=== PATIENT | female | born 1995 | race African-American/Black ===

== ENCOUNTER → 2016-06-27 | Outpatient (CLI) | payer OTHER ==
[~2016-06-27] MED LIST: GLYB5TAB3 PO; IBUP-232 PO; ONETMIS2; ONETTES4; OXYC1TAB63 PO; PRENCAP PO; SENN1TAB PO; TERC.4%V VAGINAL
== END ==
LOC: CDED 14:54
PROVIDERS: ATTEND Nurse Practitioner Women's Health
DX: O24.419 Gestational diabetes mellitus in pregnancy, unspecified control (principal)
CPT/HCPCS: 97802

== ENCOUNTER 2016-07-19 07:13 | Inpatient (IN) | payer SELFPAY ==
[2016-07-19] VITALS (101 sets, daily range): BP systolic 94–160; BP diastolic 53–100; PULSE 57–152; RESP 15–22; TEMP 98.6–101.5; O2SAT 97–100
[~2016-07-19 07:13] MED LIST changes: -IBUP-232 PO; -ONETMIS2; -ONETTES4; -OXYC1TAB63 PO; -SENN1TAB PO; -TERC.4%V VAGINAL
[2016-07-19] MEDS ORDERED: LACTATED RINGER'S 1000 ML INJ 1,000 ML IV SCH ×3 (08:12→23:00)
[2016-07-19] MEDS ORDERED: LACTATED RINGER'S 1000 ML INJ 1,000 ML IV PRN (08:12)
[2016-07-19] MEDS ORDERED: OXYTOCIN 30 UNITS-500ML PREMIX 500 ML IV ONE ×2 (08:15→18:00)
[2016-07-19] MEDS ORDERED: LIDOCAINE HCL 1% 50 ML VIAL INFIL PRN (08:15)
[2016-07-19] MEDS ORDERED: MINERAL OIL 10 ML VIAL TOPICAL PRN (08:15)
[2016-07-19] MEDS ORDERED: ONDANSETRON HCL 4 MG/2 ML VIAL IV PRN (08:15)
[2016-07-19] MEDS ORDERED: CITRIC ACID-SODIUM CITRATE LIQ 30 ML UDC PO SCH ×2 (08:15→18:15)
[2016-07-19] MEDS ORDERED: SODIUM CHLORID 0.9% 500 ML INJ 500 ML IV PRN (08:15)
[2016-07-19] MEDS ORDERED: LIDOCAINE HCL 1% 50 ML VIAL I-DERMAL PRN (08:15)
--- NOTE | 2016-07-19 08:24 | PD ---
HPI Chief Complaint Rupture or membranes Date Seen: Jul 19, 2016 Time Seen: 08:00 Travel History International Travel<30 Days: No Contact w/Intl Traveler<30Days: No Known Affected Area: No History of Present Illness HPI Patient is a 21-year-old G1 presenting at 38/1 weeks gestation with DUNG of based on the third trimester ultrasound presenting due to leakage of fluid. Patient reports that about 6 AM she began to notice a slow leak of clear fluid with occasional spots of blood and eventually a larger gush. She also endorses contractions that started around this time, injury or frequency. She endorses movement. care has been care for women starting in May. GBS negative. Patient reports anaphylactic reaction to penicillin. complicated by: Late care at 30 weeks Gestational diabetes, patient on glyburide 5 mg by mouth daily Para: 0 : 1 History Past Medical History Narrative Medical None, no history of diabetes prior to or asthma Obstetric History Obstetric History Current : care with [facility] complicated by gestational diabetes, late care Past Surgical History Surgical History: No Previous Surgery Family History Narrative Family History Father: Diabetes Mother: None Social History Alcohol Use: No Tobacco Use: No Substance Abuse: No Allergies-Medications (Allergen,Severity, Reaction): Coded Allergies: Penicillin (Verified Allergy, Unknown, 07/11/16) Home Meds Active Scripts Glyburide 5 Mg Tab5 Mg PO DAILY #60 TAB Ref 0 Take with meals at the same time each day Prov:Fletcher Smyth MD 07/03/16 Without A W/ Fe Fumar (Prenate Dha 28-0.6-0.4-300 mg)1 Cap Cap1 Tab PO DAILY #30 BOTTLE Ref 11 Prov:Janel Parish 05/28/16 Review of Systems General / Constitutional: No: Fever, Chills Eyes: No: Diploplia HENT: Headaches Cardiovascular: No: Chest Pain or Discomfort Respiratory: No: Cough Gastrointestinal: Abdominal Pain, No: Nausea, Vomiting Genitourinary: No: Dysuria Musculoskeletal: No: Edema Skin: No Rash Neurologic: No: Syncope Physical Exam Narrative Vitals: T: 100.6, RR: 18, HR: 139, DP, 133/88 GENERAL: Well-nourished, well-developed patient. SKIN: Warm and dry. HEAD: Normocephalic and atraumatic. EYES: No scleral icterus. No injection or drainage. ENT: No nasal drainage noted. Mucous membranes pink. Airway patent. NECK: Supple, trachea midline. No JVD. CARDIOVASCULAR: Regular rate and rhythm without murmurs, gallops, or rubs. RESPIRATORY: Breath sounds equal bilaterally. No accessory muscle use. ABDOMEN/GI: Abdomen soft, non-tender, bowel sounds present, no rebound, no guarding Gravid to 38 weeks size GENITOURINARY: External Genitalia: intact and normal in appearance Cervix: Posterior Dilatation: 1cm Effacement: 70% Station: -3 Presentation: Vertex Membranes:Ruptured Uterine Contractions: Q2-3 minutes FHT's: Category: 2 Baseline: 175 Reactive: + Variability: Moderate Decels: Absent EXTREMITIES: No cyanosis or edema. BACK: Nontender without obvious deformity. No CVA tenderness. NEUROLOGICAL: Awake and alert. Motor and sensory grossly within normal limits. Five out of 5 muscle strength in all muscle groups. Normal speech. Data Data Orders Vital Signs (Adult) .ON ADMISSION (07/19/16 08:11) ^ Labor Status (07/19/16 08:11) Urinalysis - C+S If Indicated (07/19/16 08:11) ^ Non Stress Test (07/19/16 08:11) ^ Hydration (07/19/16 08:11) Admit To Inpatient (07/19/16 ) Code Status (07/19/16 08:12) Vital Signs (Adult) .Per protocol (07/19/16 08:12) Activity Oob Ad Mallika (07/19/16 08:12) Heart (07/19/16 08:12) Amnioinfusion (07/19/16 08:12) Urinary Catheter Management .ONCE (07/19/16 08:12) Diet Liquid (07/19/16 Breakfast) Lactated Ringer's 1000 Ml Inj (Lr 1000 M (07/19/16 08:12) Lactated Ringer's 1000 Ml Inj (Lr 1000 M (07/19/16 08:12) Sodium Chlorid 0.9% 500 Ml Inj (Ns 500 M (07/19/16 08:15) Sodium Chlor 0.9% 1000 Ml Inj (Ns 1000 M (07/19/16 08:32) Lidocaine 1% Inj (50 Ml) (Xylocaine 1% I (07/19/16 08:15) Citric Acid-Sodium Citrate Liq (Bicitra (07/19/16 08:15) Ondansetron Inj (Zofran Inj) (07/19/16 08:15) Fentanyl Inj (Fentanyl Inj) (07/19/16 08:15) Fentanyl Inj (Fentanyl Inj) (07/19/16 08:15) Complete Blood Count With Diff (07/19/16 08:12) Hold Clot (07/19/16 08:12) Abo/Rh Blood Type (07/19/16 08:12) Urinalysis - C+S If Indicated (07/19/16 08:12) Type And Screen (07/19/16 08:12) Resp Oxygen Non Rebreathe Mask (07/19/16 ) ^ Epidural / Intrathecal Infus (07/19/16 08:12) Oxytocin 30 Units-500ml Premix (Pitocin (07/19/16 08:15) Lidocaine 1% Inj (50 Ml) (Xylocaine 1% I (07/19/16 08:15) Light Mineral Oil (Muri-Lube Oil) (07/19/16 08:15) Inpatient Certification (07/19/16 ) Comprehensive Metabolic Panel (07/19/16 08:15) MDM Medical Record Reviewed: Yes Interpretation(s) Patient is a 21-year-old G1 presenting at 38/1 weeks gestation with DUNG of based on the third trimester ultrasound presenting due to leakage of fluid. Pt received late care starting at about 30 weeks gestation. Amnisure positive, will admit for labor and delivery. IUP Category 2 tracing Will starts IV ABX, see below External monitoring/toco Amnisure positive Admit for expectant management Anticipate vaginal delivery Elevated maternal temperature Maternal temperature of 100.6 Fluid meconium stained No abdominal tenderness on exam Pt reports anaphylactic penicillin allergy Will start clindamycin IV 900 mg Q8 and Gentamicin with loading dose of 120 mg followed by 80 mg IV Q8 Gestational Diabetes Pt taking glyburide 5 mg daily sdw Yeni Justice MD R2 Jul 19, 2016 08:24
[2016-07-19] MEDS ORDERED: SODIUM CHLOR 0.9% 1000 ML INJ 1,000 ML IV PRN (08:32)
--- NOTE | 2016-07-19 08:40 | HHI.HP ---
History & Physical H&P HPI Chief Complaint Rupture or membranes Date Seen: Jul 19, 2016 Time Seen: 08:00 Travel History International Travel<30 Days: No Contact w/Intl Traveler<30Days: No Known Affected Area: No History of Present Illness HPI Patient is a 21-year-old G1 presenting at 38/1 weeks gestation with DUNG of based on the third trimester ultrasound presenting due to leakage of fluid. Patient reports that about 6 AM she began to notice a slow leak of clear fluid with occasional spots of blood and eventually a larger gush. She also endorses contractions that started around this time, injury or frequency. She endorses movement. care has been care for women starting in May. GBS negative. Patient reports anaphylactic reaction to penicillin. complicated by: Late care at 30 weeks Gestational diabetes, patient on glyburide 5 mg by mouth daily Para: 0 : 1 History (Limited) History Past Medical History Narrative Medical None, no history of diabetes prior to or asthma Obstetric History Obstetric History Current : care with [facility] complicated by gestational diabetes, late care Past Surgical History Surgical History: No Previous Surgery Family History Narrative Family History Father: Diabetes Mother: None Social History Alcohol Use: No Tobacco Use: No Substance Abuse: No Allergies-Medications Allergies-Medications (Allergen,Severity, Reaction): Coded Allergies: Penicillin (Verified Allergy, Unknown, 07/11/16) Home Meds Active Scripts Glyburide 5 Mg Tab5 Mg PO DAILY #60 TAB Ref 0 Take with meals at the same time each day Prov:Fletcher Smyth MD 07/03/16 Without A W/ Fe Fumar (Prenate Dha 28-0.6-0.4-300 mg)1 Cap Cap1 Tab PO DAILY #30 BOTTLE Ref 11 Prov:Janel Parish 05/28/16 ROS Review of Systems General / Constitutional: No: Fever, Chills Eyes: No: Diploplia HENT: Headaches Cardiovascular: No: Chest Pain or Discomfort Respiratory: No: Cough Gastrointestinal: Abdominal Pain, No: Nausea, Vomiting Genitourinary: No: Dysuria Musculoskeletal: No: Edema Skin: No Rash Neurologic: No: Syncope Physical Exam Physical Exam Narrative Vitals: T: 100.6, RR: 18, HR: 139, DP, 133/88 GENERAL: Well-nourished, well-developed patient. SKIN: Warm and dry. HEAD: Normocephalic and atraumatic. EYES: No scleral icterus. No injection or drainage. ENT: No nasal drainage noted. Mucous membranes pink. Airway patent. NECK: Supple, trachea midline. No JVD. CARDIOVASCULAR: Regular rate and rhythm without murmurs, gallops, or rubs. RESPIRATORY: Breath sounds equal bilaterally. No accessory muscle use. ABDOMEN/GI: Abdomen soft, non-tender, bowel sounds present, no rebound, no guarding Gravid to 38 weeks size GENITOURINARY: External Genitalia: intact and normal in appearance Cervix: Posterior Dilatation: 1cm Effacement: 70% Station: -3 Presentation: Vertex Membranes:Ruptured Uterine Contractions: Q2-3 minutes FHT's: Category: 2 Baseline: 175 Reactive: + Variability: Moderate Decels: Absent EXTREMITIES: No cyanosis or edema. BACK: Nontender without obvious deformity. No CVA tenderness. NEUROLOGICAL: Awake and alert. Motor and sensory grossly within normal limits. Five out of 5 muscle strength in all muscle groups. Normal speech. Data Data Data Orders Vital Signs (Adult) .ON ADMISSION (07/19/16 08:11) ^ Labor Status (07/19/16 08:11) Urinalysis - C+S If Indicated (07/19/16 08:11) ^ Non Stress Test (07/19/16 08:11) ^ Hydration (07/19/16 08:11) Admit To Inpatient (07/19/16 ) Code Status (07/19/16 08:12) Vital Signs (Adult) .Per protocol (07/19/16 08:12) Activity Oob Ad Mallika (07/19/16 08:12) Heart (07/19/16 08:12) Amnioinfusion (07/19/16 08:12) Urinary Catheter Management .ONCE (07/19/16 08:12) Diet Liquid (07/19/16 Breakfast) Lactated Ringer's 1000 Ml Inj (Lr 1000 M (07/19/16 08:12) Lactated Ringer's 1000 Ml Inj (Lr 1000 M (07/19/16 08:12) Sodium Chlorid 0.9% 500 Ml Inj (Ns 500 M (07/19/16 08:15) Sodium Chlor 0.9% 1000 Ml Inj (Ns 1000 M (07/19/16 08:32) Lidocaine 1% Inj (50 Ml) (Xylocaine 1% I (07/19/16 08:15) Citric Acid-Sodium Citrate Liq (Bicitra (07/19/16 08:15) Ondansetron Inj (Zofran Inj) (07/19/16 08:15) Fentanyl Inj (Fentanyl Inj) (07/19/16 08:15) Fentanyl Inj (Fentanyl Inj) (07/19/16 08:15) Complete Blood Count With Diff (07/19/16 08:12) Hold Clot (07/19/16 08:12) Abo/Rh Blood Type (07/19/16 08:12) Urinalysis - C+S If Indicated (07/19/16 08:12) Type And Screen (07/19/16 08:12) Resp Oxygen Non Rebreathe Mask (07/19/16 ) ^ Epidural / Intrathecal Infus (07/19/16 08:12) Oxytocin 30 Units-500ml Premix (Pitocin (07/19/16 08:15) Lidocaine 1% Inj (50 Ml) (Xylocaine 1% I (07/19/16 08:15) Light Mineral Oil (Muri-Lube Oil) (07/19/16 08:15) Inpatient Certification (07/19/16 ) Comprehensive Metabolic Panel (07/19/16 08:15) [facility] MDM Medical Record Reviewed: Yes Interpretation(s) Patient is a 21-year-old G1 presenting at 38/1 weeks gestation with DUNG of based on the third trimester ultrasound presenting due to leakage of fluid. Pt received late care starting at about 30 weeks gestation. Amnisure positive, will admit for labor and delivery. IUP Category 2 tracing Will starts IV ABX, see below External monitoring/toco Amnisure positive Admit for expectant management Anticipate vaginal delivery Elevated maternal temperature Maternal temperature of 100.6 Fluid meconium stained No abdominal tenderness on exam Pt reports anaphylactic penicillin allergy Will start clindamycin IV 900 mg Q8 and Gentamicin with loading dose of 120 mg followed by 80 mg IV Q8 Gestational Diabetes Pt taking glyburide 5 mg daily sdw Yeni Justice MD R2 Jul 19, 2016 08:40
--- NOTE | 2016-07-19 08:49 | PD ---
History of Present Illness Date Seen: Jul 19, 2016 Time Seen: 07:30 History of Present Illness OB note Patient is a 21-year-old black female at 38 weeks because to care for women clinic presents with spontaneous rupture membranes. Also having contractions every 3 minutes. Denies vaginal bleeding. She has gross ruptured membranes noted with the meconium-stained amnio sure was positive and on exam doing the amnio sure he can visualize fluid rolling over the Q-tip ,. heart rate tracing is reactive. Patient's temperature is 100.6 she has a slight tachycardia and the baby is also tachycardic in the 170 range with accelerations and good variability. Patient's cervix is 1/ 70 and -3 vertex presentation Impression-SROM at 38 weeks with meconium reactive amnionitis with low-grade fever tachycardia and early labor in the latent phase Plan-augment labor when necessary, IV clindamycin and gentamicin she is allergic to penicillin, anticipate vaginal delivery Wolf Swenson II, MD Jul 19, 2016 08:48
[2016-07-19] MEDS ORDERED: GENTAMICIN INJ 120 MG in SODIUM CHLORIDE 0.9% INJ 100 ML IV ONE (09:00)
[2016-07-19 09:02] LABS: AUTOMATED NEUTROPHIL # 4.1 TH/MM3 (1.8-7.7); BASOPHIL % 0.4 % (0.0-2.0); HEMATOCRIT 33.6 % (35.0-46.0); LYMPH % 13.6 % (9.0-44.0); LYMPHOCYTE # 0.7 TH/MM3 (1.0-4.8); MEAN CELL VOLUME 82.8 FL (80.0-100.0); MEAN CORPUSCULAR HEMOGLOBIN 26.6 PG (27.0-34.0); MEAN CORPUSCULAR HGB CONC 32.1 % (32.0-36.0); MONO % 10.2 % (0.0-8.0); NEUT % 75.8 % (16.0-70.0); RED BLOOD COUNT 4.05 MIL/MM3 (4.00-5.30); RED CELL DISTRIBUTION WIDTH 14.2 % (11.6-17.2); WHITE BLOOD COUNT 5.4 TH/MM3 (4.0-11.0)
[2016-07-19 09:18] LABS: HEMO FLAGS AUTO DIFF
[2016-07-19 09:22] LABS: ANION GAP 10 MEQ/L (5-15); AST (GOT) 17 U/L (15-37); BICARBONATE 20.9 MEQ/L (21.0-32.0); BLOOD UREA NITROGEN 8 MG/DL (7-18); CHLORIDE 102 MEQ/L (98-107); GLOMERULAR FILTRATION RATE 94 ML/MIN (>89); POTASSIUM 4.1 MEQ/L (3.5-5.1); SODIUM (NA) 133 MEQ/L (136-145)
[2016-07-19 09:23] LABS: ALT (GPT) 18 U/L (10-53)
[2016-07-19 09:25] LABS: ALKALINE PHOSPHATASE 115 U/L (45-117); TOTAL BILIRUBIN ADULT 0.3 MG/DL (0.2-1.0)
[2016-07-19 09:42] LABS: PLATELET ESTIMATE SMEAR LOW (NORMAL); PLATELET MORPHOLOGY ENLARGED (NORMAL); SCAN/DIFF AUTO DIFF CONFIRMED
[2016-07-19] MEDS: CLINDAMYCIN INJ 900 MG in SODIUM CHLORIDE 0.9% INJ 100 ML IV SCH ×2 (10:02→18:00)
[2016-07-19 10:42] LABS: BACTERIA, URINE OCC /hpf; BLOOD, URINE NEG (NEG); COMMENT (UR) CULT NOT INDICATED; CULTURE IF INDICATED CULT NOT INDICATED; GLUCOSE,URINE NEG (NEG); KETONE, URINE 10 mg/dL (NEG); MUCUS URINE FEW /lpf (OCC); NITRITE,URINE NEG (NEG); PH, URINE 6.5 (5.0-8.5); SQUAMOUS EPITHELIAL CELL URINE <1 /hpf (0-5); URINE COLOR YELLOW (YELLW/STRAW)
[2016-07-19] MEDS: ACETAMINOPHEN 325 MG TAB PO PRN ×2 (10:55→15:20)
[2016-07-19] MEDS ORDERED: ePHEDrine/NS 25 MG/5 ML SYR ONE (11:37)
[2016-07-19] MEDS ORDERED: fentaNYL 2MCG-BUPIV 0.125% INJ 100 ML ONE (11:37)
[2016-07-19] MEDS ORDERED: DO NOT ADMINISTER ANTICOAGULANTS PRN (14:15)
[2016-07-19] MEDS ORDERED: ePHEDrine/NS 25 MG/5 ML SYR IV PRN (14:15)
[2016-07-19] MEDS ORDERED: fentaNYL 2MCG-BUPIV 0.125% 100 ML EPIDURAL SCH (14:15)
[2016-07-19] MEDS ORDERED: NO SYSTEM NARCOTICS PRN (14:15)
[2016-07-19] MEDS ORDERED: LACTATED RINGER'S 1000 ML INJ 1,000 ML IV ONE (16:44)
[2016-07-19] MEDS ORDERED: OXYTOCIN 10 UNIT/ML AMP ONE (16:54)
[2016-07-19] MEDS ORDERED: ceFAZolin INJ 1,000 MG VIAL ONE (16:55)
[2016-07-19] MEDS ORDERED: GENTAMICIN INJ 80 MG in SODIUM CHLORIDE 0.9% INJ 100 ML IV SCH (17:00)
[2016-07-19] MEDS ORDERED: ONDANSETRON HCL 4 MG/2 ML VIAL ONE (17:01)
[2016-07-19] MEDS ORDERED: ACETAMINOPHEN 1000 MG/100 ML VIAL IV ONE (17:01)
[2016-07-19] MEDS ORDERED: MORPHINE SULFATE PF 5 MG/10 ML VIAL ONE (17:01)
[2016-07-19] MEDS ORDERED: METHYLERGONOVINE MALEATE 0.2 MG/ML VIAL ONE (17:20)
[2016-07-19 17:46] LABS: BLOOD GAS BASE EXCESS -6.8 mmol/L (-2-2); CORD BLOOD GAS HCO3 21 mmol/L (21-29); CORD BLOOD GAS PCO2 64 mmHG (34-78); CORD BLOOD GAS PH 7.14 (7.14-7.42)
[2016-07-19 17:47] LABS: BLOOD GAS O2 HGB SATURATION 3 % (90-100); CORD BLOOD GAS PO2 4 mmHG (3.0-40.0); DRAW SITE CORD BLOOD; STAT YES
[2016-07-19] MEDS ORDERED: ONDANSETRON HCL 4 MG/2 ML VIAL IV PUSH PRN (18:00)
[2016-07-19] MEDS ORDERED: SIMETHICONE 80 MG CHEWABLE TAB PO PRN (18:00)
[2016-07-19] MEDS ORDERED: SODIUM CHLORIDE 0.9% FLUSH 10 ML FLUSH IV FLUSH PRN (18:00)
[2016-07-19] MEDS ORDERED: ACETAMINOPHEN 325 MG TAB PO PRN (18:00)
[2016-07-19] MEDS ORDERED: ZOLPIDEM TARTRATE 5 MG TAB PO PRN (18:00)
[2016-07-19] MEDS ORDERED: oxyCODONE/ACETAMINOPHEN 5 MG/325 MG TAB PO PRN (18:00)
[2016-07-19] MEDS ORDERED: ceFAZolin 2 GM PREMIX 50 ML IV SCH (19:00)
[2016-07-19] MEDS ORDERED: OXYTOCIN 30 UNITS-500ML PREMIX 500 ML ONE (19:55)
[2016-07-19] MEDS ORDERED: EPIDURAL-DO NOT ADMINISTER ANTICOAGULANTS PRN (21:00)
[2016-07-19] MEDS ORDERED: EPIDURAL-DIPHENHYDRAMINE HCL 50 MG CAP PO PRN (21:00)
[2016-07-19] MEDS ORDERED: EPIDURAL-NO SYSTEMIC NARCOTICS PRN (21:00)
[2016-07-19] MEDS ORDERED: EPIDURAL-NALOXONE HCL 0.4 MG/ML AMP IV PRN (21:00)
[2016-07-19] MEDS ORDERED: EPIDURAL-DIPHENHYDRAMINE HCL 50 MG/ML VIAL IV PUSH PRN (21:00)
[2016-07-20] VITALS: RESP 18
[2016-07-20 00:39] VITALS: BP 118/77; PULSE 100; RESP 20; TEMP 99.4
[2016-07-20] MEDS: GENTAMICIN 80 MG PREMIX 100 ML IV SCH ×2 (00:45→08:59)
[2016-07-20] MEDS: SODIUM CHLORIDE 0.9% FLUSH 10 ML FLUSH IV FLUSH SCH ×2 (00:46→21:00)
[2016-07-20] MEDS: IBUPROFEN 600 MG TAB PO PRN ×2 (01:08→20:16)
[2016-07-20 02:00] VITALS: RESP 16; RESP 18
[2016-07-20] MEDS: ACETAMINOPHEN 1000 MG/100 ML VIAL IV SCH ×2 (02:11→10:35)
[2016-07-20] MEDS: CLINDAMYCIN INJ 900 MG in SODIUM CHLORIDE 0.9% INJ 100 ML IV SCH ×2 (02:19→10:35)
[2016-07-20 03:00] VITALS: RESP 18
[2016-07-20] MEDS ORDERED: OXYTOCIN 30 UNITS-500ML PREMIX 500 ML IV PRN (04:00)
[2016-07-20 04:33] VITALS: BP 115/77; PULSE 72; RESP 16; TEMP 97.5
[2016-07-20 06:00] LABS: AUTOMATED NEUTROPHIL # 5.1 TH/MM3 (1.8-7.7); BASOPHIL % 0.2 % (0.0-2.0); HEMATOCRIT 35.8 % (35.0-46.0); MEAN CELL VOLUME 83.8 FL (80.0-100.0); MEAN CORPUSCULAR HGB CONC 32.3 % (32.0-36.0); MONO % 6.1 % (0.0-8.0); NEUT % 78.7 % (16.0-70.0); PLATELET COUNT 86 TH/MM3 (150-450); RED BLOOD COUNT 4.27 MIL/MM3 (4.00-5.30); RED CELL DISTRIBUTION WIDTH 14.5 % (11.6-17.2); WHITE BLOOD COUNT 6.4 TH/MM3 (4.0-11.0)
[2016-07-20 06:04] LABS: HEMO FLAGS AUTO DIFF
[2016-07-20 06:58] LABS: SCAN/DIFF AUTO DIFF CONFIRMED
--- NOTE | 2016-07-20 09:31 | HHI.OB ---
Subjective Post Operative Day: 1 Remarks Patient is a 21-year-old delivered at 38 weeks and 1 day. Patient is day 1 after for nonreassuring heart tracing. Patient' s pain is well-controlled. Patient reports eating and drinking without any nausea or vomiting. Patient reports minimal bleeding. Patient has passed gas but no bowel movements. Patient is walking without lower extremity pain or shortness of breath. Patient reports desire for contraception with oral control pills and breast-feeding. (Michael Lee MD R1) Objective Vitals/I&O Vital Signs: Patient has been afebrile since 07/19/16 at 15:06 when she had a temperature 100.8. Patient was tachycardic with low blood pressure at that time. Tachycardia persists until patient had a few episodes of elevated blood pressure. Most recent vitals have been afebrile with other vital signs within normal limits. Date Time Temp Pulse Resp B/P Pulse Ox O2 Delivery O2 Flow Rate FiO2 07/20/16 04:33 97.5 72 16 115/77 07/20/16 03:00 18 07/20/16 02:00 16 07/20/16 02:00 18 07/20/16 00:39 99.4 07/20/16 00:39 100 20 118/77 07/20/16 00:00 18 07/19/16 23:00 16 07/19/16 23:00 18 07/19/16 22:00 16 07/19/16 21:15 99.3 57 15 129/76 07/19/16 19:45 160/68 07/19/16 19:45 99.0 07/19/16 19:45 68 07/19/16 19:43 18 97 07/19/16 19:30 18 98 07/19/16 19:30 83 158/74 07/19/16 19:15 85 20 140/85 07/19/16 19:00 77 144/81 99 07/19/16 19:00 140/78 07/19/16 18:45 22 99 07/19/16 18:45 85 125/97 07/19/16 18:30 16 07/19/16 18:30 99.1 95 98 07/19/16 18:18 116/92 07/19/16 18:07 90 16 108/53 97 07/19/16 18:02 98.6 07/19/16 16:45 106 100 07/19/16 16:40 112 100 07/19/16 16:35 125 100 07/19/16 16:30 106 07/19/16 16:30 100 07/19/16 16:30 99.7 108 118/74 07/19/16 16:10 114 07/19/16 16:05 107 07/19/16 16:01 108 118/64 07/19/16 16:00 99 07/19/16 15:35 116 07/19/16 15:32 84 137/86 07/19/16 15:30 142 07/19/16 15:20 138 07/19/16 15:15 134 07/19/16 15:06 100.8 07/19/16 15:05 142 104/65 07/19/16 15:01 141 94/73 07/19/16 15:00 152 07/19/16 14:56 98.7 07/19/16 14:55 131 07/19/16 14:50 118 07/19/16 14:40 108 07/19/16 14:35 113 07/19/16 14:30 113 125/86 07/19/16 14:30 138 07/19/16 14:25 105 07/19/16 14:20 97 07/19/16 14:15 91 07/19/16 14:10 93 07/19/16 14:05 91 07/19/16 14:00 89 104/56 07/19/16 14:00 96 07/19/16 13:55 82 07/19/16 13:50 91 07/19/16 13:45 87 07/19/16 13:40 92 07/19/16 13:36 99.5 07/19/16 13:35 103 07/19/16 13:30 106 131/82 07/19/16 13:30 102 07/19/16 13:25 94 07/19/16 13:20 103 07/19/16 13:15 95 07/19/16 13:10 87 07/19/16 13:05 94 07/19/16 13:00 106 07/19/16 13:00 105 117/86 07/19/16 12:55 105 07/19/16 12:50 100 07/19/16 12:45 111 07/19/16 12:45 99.5 07/19/16 12:40 104 07/19/16 12:40 112 136/70 07/19/16 12:35 118 07/19/16 12:35 105 07/19/16 12:31 133/81 07/19/16 12:31 111 07/19/16 12:30 105 07/19/16 12:26 114 137/86 07/19/16 12:25 113 07/19/16 12:20 115 07/19/16 12:20 116 138/68 07/19/16 12:15 125 135/74 07/19/16 12:10 115 07/19/16 12:10 115 145/84 07/19/16 12:09 117 149/88 07/19/16 12:05 121 148/100 07/19/16 12:00 106 07/19/16 12:00 111 148/87 07/19/16 11:55 116 07/19/16 11:51 101.5 07/19/16 11:50 116 07/19/16 11:45 104 07/19/16 11:40 108 07/19/16 11:35 115 07/19/16 11:30 111 143/75 07/19/16 11:30 116 07/19/16 11:25 115 07/19/16 11:20 116 07/19/16 11:15 121 07/19/16 11:10 118 07/19/16 11:05 113 07/19/16 11:00 116 07/19/16 11:00 99.3 18 142/86 07/19/16 11:00 131 07/19/16 10:55 133 07/19/16 10:35 126 07/19/16 10:30 133 131/83 07/19/16 10:30 132 07/19/16 10:27 125 138/83 07/19/16 10:25 131 07/19/16 10:20 130 07/19/16 10:15 144 07/19/16 10:10 128 07/19/16 10:05 132 07/19/16 10:00 130 07/19/16 09:55 125 07/19/16 09:50 131 07/19/16 09:45 125 07/19/16 09:40 121 07/19/16 09:35 123 (Michael Lee MD R1) Result Diagram: 07/20/16 0452 07/19/16 0825 Objective Remarks GENERAL: Well-nourished, well-developed patient. CARDIOVASCULAR: Regular rate and rhythm without murmurs, gallops, or rubs. RESPIRATORY: Breath sounds equal bilaterally. No accessory muscle use. ABDOMEN/GI: Abdomen soft, non-tender, bowel sounds present. Incision: Clean, dry and intact. Fundus: Firm, non-tender at umbilicus. GENITOURINARY: Light to moderate bleeding. EXTREMITIES: No cyanosis or edema, non-tender, without signs of DVT. Medications and IVs Current Medications Medications (Trade) Dose Ordered Sig/Armani Route Start Time Stop Time Status Last Admin (Cleocin Inj/NS Inj) 106 ml @ 212 mls/hr Q8H IV 07/19/16 10:00 07/20/16 02:19 (Tylenol) 325 mg Q4H PRN PO 07/19/16 09:30 07/19/16 15:20 Miscellaneous Information No systemic narcotics to be given except... UNSCH PRN .XX 07/19/16 14:15 07/20/16 14:14 Miscellaneous Information DO NOT ADMINISTER ANY ANTICOAGUL... UNSCH PRN .XX 07/19/16 14:15 07/20/16 14:14 (fentaNYL 2MCG-BUPIV 0.125% INJ) 100 ml @ 0 mls/hr TITRATE EPIDURAL 07/19/16 14:15 Ephedrine Sulfate 10 mg 10 mg UNSCH PRN IV 07/19/16 14:15 07/20/16 14:14 (Lr 1000 ml Inj) 1,000 ml @ 100 mls/hr Q10H IV 07/19/16 23:00 07/20/16 18:59 07/19/16 04:30 (NS Flush) 2 ml BID IV FLUSH 07/19/16 21:00 07/20/16 00:46 (NS Flush) 2 ml UNSCH PRN IV FLUSH 07/19/16 18:00 07/20/16 02:19 (Mylicon Chew) 80 mg QID PRN PO 07/19/16 18:00 (Tylenol) 650 mg Q6H PRN PO 07/19/16 18:00 (Motrin) 600 mg Q6H PRN PO 07/19/16 18:00 07/20/16 01:08 (Percocet 5-325 Mg) 1 tab Q4H PRN PO 07/19/16 18:00 (Percocet 5-325 Mg) 2 tab Q4H PRN PO 07/19/16 18:00 (Manasa-Colace) 2 tab Q12H PRN PO 07/19/16 18:00 (Ambien) 5 mg HS PRN PO 07/19/16 18:00 (M-M-R Ii Inj) 0.5 ml ONCE ONCE SQ 07/20/16 16:00 07/20/16 16:01 (Boostrix Inj) 0.5 ml ONCE ONCE IM 07/20/16 16:00 07/20/16 16:01 Ondansetron HCl 4 mg 4 mg Q6H PRN IV PUSH 07/19/16 18:00 (Gentamicin 80 Mg Premix) 100 ml @ 100 mls/hr Q8H IV 07/20/16 01:00 07/20/16 08:59 Miscellaneous Information NO SYSTEMIC NARCOTICS TO BE GIVEN FO... UNSCH PRN .XX 07/19/16 21:00 07/20/16 20:59 (Narcan Inj) 0.4 mg UNSCH PRN IV 07/19/16 21:00 07/20/16 20:59 (Benadryl Inj) 25 mg Q6H PRN IV PUSH 07/19/16 21:00 07/20/16 20:59 (Benadryl) 50 mg Q6H PRN PO 07/19/16 21:00 07/20/16 20:59 Miscellaneous Information ALL NURSING DEPARTMENTS UNSCH PRN .XX 07/19/16 21:00 07/20/16 20:59 (Ofirmev Inj) 1,000 mg Q8H IV 07/20/16 02:00 07/20/16 10:01 07/20/16 02:11 (Michael Lee MD R1) Assessment/Plan Problem List: (1) S/P (2) Chorioamnionitis, delivered, current hospitalization Assessment and Plan Patient is a 21-year-old delivered at 38 weeks and 1 day. Patient is day 1 after for nonreassuring heart tracing in the context of chorioamnionitis diagnosed based on maternal tachycardia, tachycardia, maternal fever, meconium-stained ROM. Patient was counseled to do 6 weeks of pelvic rest. Patient was counseled to follow up in one week for an incision check and again in 6 weeks. Patient requested follow-up and contraception with oral control pills upon discharge. 1. s/p --AF VSS --Continue routine care --Motrin and Percocet when necessary for pain --Encourage OOB --Pelvic rest for 6 weeks will need follow-up appointment at that time. --Contraception: Ortho Micronor rral control pills upon discharge --Anticipate discharge in 2 days 2. Chorioamnionitis, delivered, diagnosed upon presentation during this hospitalization Continue clindamycin 900 mg IV every 8 hours Continue gentamicin 80 mg IV every 8 hours Continue antibiotics until the patient is afebrile for at least 24 hours: Patient has been afebrile since 07/19/16 at 15:06 when she had a temperature 100.8. We'll stop antibiotics on 07/20 at 15:06 D/w Dr. Salazar. (Michael Lee MD R1) Attending Attestation The exam, history, and the medical decision-making described in the above note were completed with the assistance of the resident provider. I reviewed and agree with the findings presented. I attest that I had a [id number] encounter with the patient on the same day, and personally performed and documented my assessment and findings in the medical record. (Francisco Salazar MD) Michael Lee MD R1 Jul 20, 2016 09:31 Francisco Salazar MD Jul 23, 2016 10:48
[2016-07-20] MEDS ORDERED: MEASLES, MUMPS, RUBELLA VACCINE 0.5 ML VIAL SQ ONE (16:00)
[2016-07-20] MEDS ORDERED: DIPHTH/TETANUS/ACEL PERTUSSIS (BOOSTER) 0.5 ML VIAL/PFS IM ONE (16:00)
[2016-07-20] MEDS: oxyCODONE/ACETAMINOPHEN 5 MG/325 MG TAB PO PRN (20:16)
[2016-07-20] MEDS: DOCUSATE SODIUM 50 MG/SENNA 8.6 MG TAB PO PRN (20:16)
--- NOTE | 2016-07-21 07:21 | HHI.OB ---
Subjective Post Operative Day: 2 Remarks Pt seen and examined this morning.Postoperative day # 2 AFVSS overnight. Incision not draining. Decreased lochia. Denies dysuria. No breast tenderness. She is feeding the baby via breast and bottle. Appetite good. No nausea or vomiting. Patient has not yet had a bowel movement. +flatus. Ambulating well. Denies calf pain or shortness of breath. Otherwise, she is doing well this morning and has no other concerns. Objective Result Diagram: 07/20/16 1342 07/19/16 0865 Objective Remarks GENERAL: Well-nourished, well-developed patient. CARDIOVASCULAR: Regular rate and rhythm without murmurs, gallops, or rubs. RESPIRATORY: Breath sounds equal bilaterally. No accessory muscle use. ABDOMEN/GI: Abdomen soft, non-tender, bowel sounds present. Incision: Clean, dry and intact. Fundus: Firm, non-tender at umbilicus. GENITOURINARY: Light to moderate bleeding. EXTREMITIES: No cyanosis or edema, non-tender, without signs of DVT. Medications and IVs Current Medications Medications (Trade) Dose Ordered Sig/Armani Route Start Time Stop Time Status Last Admin Acetaminophen 325 mg 325 mg Q4H PRN PO 07/19/16 09:30 07/19/16 15:20 (fentaNYL 2MCG-BUPIV 0.125% INJ) 100 ml @ 0 mls/hr TITRATE EPIDURAL 07/19/16 14:15 (NS Flush) 2 ml BID IV FLUSH 07/19/16 21:00 07/20/16 00:46 (NS Flush) 2 ml UNSCH PRN IV FLUSH 07/19/16 18:00 07/20/16 02:19 (Mylicon Chew) 80 mg QID PRN PO 07/19/16 18:00 (Tylenol) 650 mg Q6H PRN PO 07/19/16 18:00 (Motrin) 600 mg Q6H PRN PO 07/19/16 18:00 07/20/16 20:16 (Percocet 5-325 Mg) 1 tab Q4H PRN PO 07/19/16 18:00 07/20/16 20:16 (Percocet 5-325 Mg) 2 tab Q4H PRN PO 07/19/16 18:00 (Manasa-Colace) 2 tab Q12H PRN PO 07/19/16 18:00 07/20/16 20:16 (Ambien) 5 mg HS PRN PO 07/19/16 18:00 (Zofran Inj) 4 mg Q6H PRN IV PUSH 07/19/16 18:00 Assessment/Plan Problem List: (1) S/P (2) Chorioamnionitis, delivered, current hospitalization Assessment and Plan 21 y/o female who is POD# 2 s/p CXN. -Continue routine care. -Percocet and Motrin PRN pain. -Encouraged OOB. Advised pelvic rest for 6 wks. Will need a f/u appt. in 1-2 wks for incision check. -Re: ctrl, she would like OCP at discharge. -Anticipate discharge tomorrow. wdw Dr. Swenson, MD Weiss,Yein MCKENZIE R2 Jul 21, 2016 07:21
[2016-07-21 08:00] VITALS: BP 128/81; PULSE 82; RESP 16; TEMP 97.9
[2016-07-21] MEDS: DOCUSATE SODIUM 50 MG/SENNA 8.6 MG TAB PO PRN ×2 (08:04→20:04)
[2016-07-21] MEDS: oxyCODONE/ACETAMINOPHEN 5 MG/325 MG TAB PO PRN (08:04)
[2016-07-21] MEDS: IBUPROFEN 600 MG TAB PO PRN ×2 (08:04→20:04)
[2016-07-21] MEDS: SODIUM CHLORIDE 0.9% FLUSH 10 ML FLUSH IV FLUSH SCH (08:08)
--- NOTE | 2016-07-21 17:21 | MP ---
cc: GWENDOLYN SALAZAR MD DATE OF 89 DATE OF SURGERY 07/19/16 PREOPERATIVE DIAGNOSIS 1. Intrauterine at 38+ weeks 2. Chorioamnionitis 3. Meconium stained fluid 4. Non-reassuring heart rate tracing POSTOPERATIVE DIAGNOSIS 1. Intrauterine at 38+ weeks 2. Chorioamnionitis 3. Meconium stained fluid 4. Non-reassuring heart rate tracing PROCEDURE Primary low transverse caesarean delivery SURGEON Tonja Salazar MD CONTINUOUS IM[employer]OVEMENT MANAGER Placido Lee, PGY1 ANESTHESIA Epidural IV FLUID Two liters Crystalloid URINE OUTPUT 200 cc clear yellow urine ESTIMATED BLOOD LOSS 500 mL DRAINS Barrera to gravity COMPLICATIONS None. INDICATION The patient is a 21 year old G1 with intrauterine at 38 weeks who is admitted with ruptured membranes and in labor and developed chorioamnionitis as well as non-reassuring heart rate status during labor. Caesarean delivery was recommended and patient was agreeable to the plan. SURGICAL FINDINGS 1. Normal pelvic anatomy 2. Female in meconium stained fluid with nuchal cord times one. 3. Intact placenta with three-vessel cord, small cord diameter noted. 4. Hemostasis at completion of procedure PREOPERATIVE ANTIBIOTICS The patient was receiving clindamycin and gentamicin during labor for chorioamnionitis. She also received Ancef 2 grams IV prior to incision. SURGICAL SPECIMEN Placenta to pathology and placental cultures were also obtained, cord gases and cord blood sample. PROCEDURE IN DETAIL After the risks, benefits and alternatives and indication for caesarean delivery were reviewed with the patient and her mother, who was present at bedside, and all questions were answered the patient was transported to the operating room where epidural anesthesia was redosed. SCDs were placed on the patient's lower extremity. She already had a Barrera catheter in place. The patient was then prepped and draped in a normal sterile fashion in the dorsal supine position with a leftward tilt. Timeout procedure was performed. Anesthesia was tested and found to be adequate. Pfannenstiel skin incision was made with a scalpel and carried down to the underlying fascia. The fascia was incised on either side of the midline and the incision was extended laterally with the Dutton scissors. The superior aspect of the fascial incision was grasped with Yaron clamps and the rectus muscles were dissected off bluntly and sharply. This was repeated along the inferior aspect of the fascial incision. Rectus muscles were in the midline and the underlying peritoneum was entered bluntly. The incision was stretched. A bladder blade was placed. Incision was made in the lower uterine segment. Once membranes were visualized, the incision was extended with the index fingers. Amniotic bag was ruptured revealing meconium stained fluid. The infant's head was elevated up to the incision and delivered through the incision with upper traction and fundal pressure. There was a nuchal cord which was reduced. The body then followed then with gentle traction. Due to the non-reassuring heart rate prior to delivery, delayed cord clamping was not performed. The cord was clamped and cut and the was handed off to the awaiting team. The placenta was delivered with fundal massage. The uterus was exteriorized and cleared of all clots and debris. The uterine tone was less than adequate at this point. Uterine massage was performed. The uterine incision was repaired with #1 Chromic in a running lock fashion. 0.2 mg of Methergine was given by anesthesia for hypotonia of the uterus. Improved tone was noted after medication was given. Additional figure of eight sutures were placed along the incision line for added hemostasis. The posterior cul-de-sac was then irrigated and suctioned. The uterus was returned to the abdomen. The gutters were irrigated and suctioned. The incision was also irrigated, suctioned and reinspected and hemostasis was noted. Four pieces of Seprafilm were placed over the uterine fundus and the uterine incision. The fascia was then closed with #1 Vicryl in a running fashion. The subcutaneous tissue was irrigated and coagulated. The skin was then closed with 4-0 Monocryl in a subcutaneous fashion. The patient tolerated the procedure well. Sponge, lap, needle, instrument counts were reported as correct times three. Abdominal dressing was placed and the patient was transported to the recovery room with her in stable condition. Mya Leach /7:10 PM /4:43 PM
[2016-07-21 20:00] VITALS: BP 127/84; PULSE 80; RESP 18; TEMP 97.9; O2SAT 100
[2016-07-22 08:11] VITALS: BP 142/82; PULSE 83; RESP 16; TEMP 98.3
[2016-07-22] MEDS: SODIUM CHLORIDE 0.9% FLUSH 10 ML FLUSH IV FLUSH SCH (08:15)
--- NOTE | 2016-07-22 10:35 | HHI.OB ---
Subjective Post Operative Day: 3 Remarks 21 year old female s/p due to nonreassuring strep at 38/1 wks gestation, POD 30. AFVSS. Patient reports she is feeling well. Bleeding is decreasing and pain is well-controlled. She is bonding well with baby. Ambulating without difficulties. She is tolerating a diet without nausea or vomiting. Denies chest pain, dysuria, shortness of breath, or calf pain. (Mecca Lux MD R2) Objective Vitals/I&O Vital Signs Date Time Temp Pulse Resp B/P Pulse Ox O2 Delivery O2 Flow Rate FiO2 07/22/16 08:11 98.3 83 16 142/82 07/21/16 20:00 80 07/21/16 20:00 18 07/21/16 20:00 127/84 07/21/16 20:00 97.9 07/21/16 20:00 100 (Mecca Mosley MD R2) Result Diagram: 07/20/16 0452 07/19/16 0825 Objective Remarks GENERAL: Well-nourished, well-developed patient. CARDIOVASCULAR: Regular rate and rhythm without murmurs, gallops, or rubs. RESPIRATORY: Breath sounds equal bilaterally. No accessory muscle use. ABDOMEN/GI: Abdomen soft, non-tender. Incision: Clean, dry and intact. Fundus: Firm, non-tender at umbilicus. GENITOURINARY: Light to moderate bleeding. EXTREMITIES: No cyanosis or edema, non-tender, without signs of DVT. Medications and IVs Current Medications Medications (Trade) Dose Ordered Sig/Armani Route Start Time Stop Time Status Last Admin Acetaminophen 325 mg 325 mg Q4H PRN PO 07/19/16 09:30 07/19/16 15:20 (fentaNYL 2MCG-BUPIV 0.125% INJ) 100 ml @ 0 mls/hr TITRATE EPIDURAL 07/19/16 14:15 (NS Flush) 2 ml BID IV FLUSH 07/19/16 21:00 07/20/16 00:46 (NS Flush) 2 ml UNSCH PRN IV FLUSH 07/19/16 18:00 07/20/16 02:19 (Mylicon Chew) 80 mg QID PRN PO 07/19/16 18:00 (Tylenol) 650 mg Q6H PRN PO 07/19/16 18:00 (Motrin) 600 mg Q6H PRN PO 07/19/16 18:00 07/21/16 20:04 (Percocet 5-325 Mg) 1 tab Q4H PRN PO 07/19/16 18:00 07/21/16 08:04 (Percocet 5-325 Mg) 2 tab Q4H PRN PO 07/19/16 18:00 (Manasa-Colace) 2 tab Q12H PRN PO 07/19/16 18:00 07/21/16 20:04 (Ambien) 5 mg HS PRN PO 07/19/16 18:00 (Zofran Inj) 4 mg Q6H PRN IV PUSH 07/19/16 18:00 (Mecca Mosley MD R2) Assessment/Plan Problem List: (1) S/P (2) Chorioamnionitis, delivered, current hospitalization Assessment and Plan 21 y/o female who is POD# 3 s/p CXN. -Continue routine care. -Percocet and Motrin PRN pain. -Encouraged OOB. Advised pelvic rest for 6 wks. Will need a f/u appt. in 1 wk for incision check. -Re: ctrl, she would like OCP but is agreeable to Depo-Provera in the hospital with prescription of OCPs by TRANSITION ADVISOR as an outpatient -Anticipate discharge today sdw Dr. Ellis (Mecca Mosley MD R2) Attending Attestation POD#3 s/p Doing well D/c home today F/u one week for incision check Patient seen and examined with Dr. Mosley (Brandi Ellis MD) Mecca Mosley MD R2 Jul 22, 2016 10:35 Brandi Ellis MD Jul 27, 2016 09:44
[2016-07-22] MEDS ORDERED: OXYC1TAB63 PO (10:37)
[2016-07-22] MEDS ORDERED: IBUP-232 PO (10:37)
--- NOTE | 2016-07-22 10:39 | HHI.DCPOC ---
Discharge Care Plan Diagnosis: (1) delivery delivered Report Symptoms to Your Doctor -Temperature above 100.5 degrees -Redness, of incision or excessive or foul smelling drainage -Unusual pain or calf pain -Increased vaginal bleeding -Painful or difficulty urinating -Feelings of extreme sadness or anxiety after 2 weeks Goals to Promote Your Health * To prevent worsening of your condition and complications * To maintain your health at the optimal level Directions to Meet Your Goals Take your medications as prescribed Follow your dietary instruction Follow activity as directed Ensure plenty of rest for recovery Drink fluids for hydration Keep your appointments as scheduled Take your immunizations and boosters as scheduled If your symptoms worsen call your PCP, if no PCP go to Urgent Care Center or Emergency Room Smoking is Dangerous to Your Health. Avoid second hand smoke Call the 24-hour crisis hotline for domestic abuse at Mecca Mosley MD R2 Jul 22, 2016 10:39 Brandi Ellis MD Jul 27, 2016 09:42
[2016-07-22] MEDS ORDERED: SENN1TAB PO (10:44)
[2016-07-22] MEDS ORDERED: medroxyPROGESTERone ACETATE SUSP 150 MG/ML SYRINGE IM ONE (10:45)
[2016-07-22] MEDS: DOCUSATE SODIUM 50 MG/SENNA 8.6 MG TAB PO PRN (11:48)
[2016-07-22] MEDS: oxyCODONE/ACETAMINOPHEN 5 MG/325 MG TAB PO PRN (11:48)
[2016-07-22] MEDS: IBUPROFEN 600 MG TAB PO PRN (11:48)
== END 2016-07-22 15:13 | disposition home or self-care (01) | DRG 765 ==
LOC: HOBED 07:13 → H2EB 08:33 → UNDOADMIN 08:33 → H2EB 08:36 → H1EA 20:12
PROVIDERS: ADMIT Obstetrics & Gynecology Maternal & Fetal Medicine; ATTEND Obstetrics & Gynecology Maternal & Fetal Medicine
PROC: 10D00Z1 Extraction of Products of Conception, Low, Open Approach (ICD-10-PCS; principal; 2016-07-19)
PROC: 3E0S3CZ (ICD-10-PCS; 2016-07-19)
PROC: 00HU33Z Insertion of Infusion Device into Spinal Canal, Percutaneous Approach (ICD-10-PCS; 2016-07-19)
DX: O42.92 Full-term premature rupture of membranes, unspecified as to length of time between rupture and onset of labor (principal); O41.1230 Chorioamnionitis, third trimester, not applicable or unspecified; O77.0 Labor and delivery complicated by meconium in amniotic fluid; O76 Abnormality in fetal heart rate and rhythm complicating labor and delivery; O69.81X0 Labor and delivery complicated by cord around neck, without compression, not applicable or unspecified; O62.2 Other uterine inertia; O24.415 Gestational diabetes mellitus in pregnancy, controlled by oral hypoglycemic drugs; O09.33 Supervision of pregnancy with insufficient antenatal care, third trimester; Z37.0 Single live birth; Z3A.38 38 weeks gestation of pregnancy; Z88.0 Allergy status to penicillin
CPT/HCPCS: 76815; 80053; 81001; 82805; 84112; 85025; 86850; 86900; 86901; 87070; 88307; 90715; 94150; 99285; J0131; J0690; J1050; J1580; J2210; J2274; J2405; J2590; J3010; J7120